=== PATIENT | female | born 1940 | race Caucasian/White ===

== ENCOUNTER 2016-09-04 16:34 | Emergency (ER) | payer MEDICARE ==
[2016-09-04 14:09] LABS: BASOPHILS 0.4 %; BASOPHILS ABSOLUTE 0.03 10/3/uL (0.0-0.16); EOSINOPHILS 0.4 %; EOSINOPHILS ABSOLUTE 0.03 10/3/uL (0.0-0.53); ER CBC TAT 0 Hrs 07 Mins; HEMATOCRIT 38.9 % (36.0-48.0); HEMOGLOBIN 12.8 g/dL (12.0-16.0); IMMATURE GRANULOCYTES 0.2 %; IMMATURE GRANULOCYTES ABSOLUTE 0.02 10/3/uL (0.0-0.11); LYMPHOCYTES 19.8 %; MEAN CORPUS HGB CONC 32.9 g/dL (32.0-36.0); MEAN CORPUSCULAR HEMOGLOB 30.6 pg (26.0-34.0); MEAN CORPUSCULAR VOLUME 93.1 fL (80-100); MEAN PLATELET VOLUME 8.9 fL (9.2-13.0); MONOCYTES 8.4 %; MONOCYTES ABSOLUTE 0.68 10/3/uL (0.21-1.20); NEUTROPHILS 70.8 %; NEUTROPHILS ABSOLUTE 5.74 10/3/uL (2.02-8.40); PLATELET COUNT 319 10/3/uL (150-400); RBC DISTRIBUTION WIDTH 14.7 % (12.0-16.0); RED CELL COUNT 4.18 10/6/uL (4.0-5.6); WHITE BLOOD CELLS 8.1 10/3/uL (4.5-10.5)
[2016-09-04 14:10] LABS: MANUAL DIFF NO %
[2016-09-04 14:12] LABS: ALLENS TEST Pos; BE (BASE EXCESS) -2.3 MEQ/L (0 +/- 2.5); HCO3 (ACTUAL BICARBONATE) 20.9 MEQ/L (23-27); INSTRUMENT SERIAL # 8087; METHEMOGLOBIN 0.2 % (0-3); O2 CONTENT 16.3 VOL% (18-24); OPERATOR ID 32214; PCO2 (CO2 TENSION) 31 MMHG (35-45); PO2 (O2 TENSION) 65 MMHG (79-93); SAMPLE Arterial; pH 7.44 (7.37-7.43)
[2016-09-04 14:25] LABS: A/G RATIO 1.2 (0.7-1.9); ALBUMIN 3.9 G/DL (3.5-5.0); ALKALINE PHOSPHATASE 60 U/L (45-117); BUN (BLOOD UREA NITROGEN) 16 MG/DL (6-23); CHLORIDE, SERUM 104 MMOL/L (96-112); CO2 (CARBON DIOXIDE) 27 MMOL/L (24-34); CREATININE 1.06 MG/DL (0.55-1.02); GFR AFRICAN AMERICAN 58 ML/MIN (>=60); GFR NON AFRICAN AMERICAN 50 ML/MIN (>=60); GLOBULIN 3.2 G/DL (2.5-4.1); GLUCOSE, SERUM 288 MG/DL (60-99); POTASSIUM, SERUM 4.2 MMOL/L (3.5-5.3); SGOT(AST) 24 U/L (5-40); SGPT(ALT) 26 U/L (5-65); SODIUM, SERUM 139 MMOL/L (135-148); TOTAL BILIRUBIN 0.7 MG/DL (0-1.2); TOTAL PROTEIN 7.1 G/DL (6.0-8.5)
[2016-09-04 14:59] LABS: ASCORBIC ACID (UR NOT ORDER) NEG (NEG); BILIRUBIN, URINE NEGATIVE (NEG); ER URINALYSIS TAT 0 Hrs 19 Mins; KETONE, URINE TRACE MG/DL (NEG); LEUKOCYTE ESTERASE(NOT OR LARGE (NEG); NITRITE (URINE) POS (NEG); WBC (NOT ORDERED) (RFLEX) > 182 (0-5)
== END 2016-09-04 16:42 | disposition home or self-care (01) ==
LOC: ER 16:34
PROVIDERS: Emergency Medicine
DX: N39.0 Urinary tract infection, site not specified (principal); J45.909 Unspecified asthma, uncomplicated; F17.200 Nicotine dependence, unspecified, uncomplicated; Z88.5 Allergy status to narcotic agent
CPT/HCPCS: 36600; 70450; 80053; 81001; 82805; 82962; 85025; 87077; 87086; 87186; 93005; 99285

== ENCOUNTER 2016-09-06 21:19 | Inpatient (IN) | payer MEDICARE ==
--- NOTE | ~2016-09-06 | HP ---
History And Physical [place] [id number] [facility] [place]. [address] NAME: EUGENE PINTO : 36 STATUS : ADM IN PAT#: [id number] AGE: 76 ADM/REG DATE : 09/07/16 MR#: [id number] REPORT SERV DATE: 09/07/16 DICTATED BY: LEILA HUSAIN DATE: 09/07/16 REPORT STATUS : Draft TRANSCRIBED BY: MODL DATE: 09/07/16 DATE OF ADMISSION: 09/07/2016 CHIEF COMPLAINT: A 76-year-old female presenting with progressive confusion, agitation, psychosis. HISTORY OF PRESENTING ILLNESS: The patient's history was obtained through careful interview with the patient and daughter coupled with review of [facility] medical records. The patient over the last year has had gradually worsening dementia. It has not become disabling in anyway, but the patient just has waxing and waning, confusion, and loss of short-term memory, but still is able to live independently. But over the last six days, the patient's confusion has really progressed rapidly. She first began to feel paranoid and according to the family was acting "crazy," she said that she was dying and believes that she had to empty out her checking account to make sure that only the appropriate people in the family were able to get "her money." She actually presented a check for 1200 dollars to one of her sons because of this. Then a few days ago, she drove to [place] and was sitting in a dentist office, thinking it was a bank, waiting to be attended to by the banking staff there. It took quite a bit of time for the dentist office to determine who the patient was and how to contact her family. She had left her keys in the ignition out in the parking lot and eventually were able to contact family to come and get her. She was disoriented and agitated. Eventually, she found her way to our emergency department on 09/04/2016, and was diagnosed with quite a severe urinary tract infection, was started on antibiotics for this thinking that this might clear up her confusion and delirium. Despite being on antibiotics for several days, she has only become more confused. She has been agitated, combative, and today was trying to get out of the house. She has actually thought that her (who about 10 years ago) "was still alive." The patient has been constantly talking, has been continuing to have "crazy" thoughts according to the family and paranoia. She has only slept maybe two hours at a time for the last two or three nights. She talks incessantly and is very irritable. The patient has had a gradual weight loss over the last 10 years since her 's , but nothing more severe than that over these last few years. She has chronic shortness of breath related to heavy smoking and a chronic smoker's cough. No chest pain. No headache. No pain complaints at all. REVIEW OF SYSTEMS: Otherwise, a 14-point review of systems was obtained, was negative. History And Physical [address] [address] NAME: EUGENE PINTO : 38 STATUS : ADM IN PAT#: [id number] AGE: 76 ADM/REG DATE : 09/07/16 MR#: [id number] REPORT SERV DATE: 09/07/16 DICTATED BY: LEILA HUSAIN DATE: 09/07/16 REPORT STATUS : Draft TRANSCRIBED BY: DANIELLE DATE: 09/07/16 PAST MEDICAL HISTORY: 1. Dementia. 2. COPD. 3. 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 PAST SURGICAL HISTORY: 1. Partial gastrectomy. 2. Bilateral wrist surgery. 3. Hysterectomy. ALLERGIES: CODEINE. SOCIAL HISTORY: The patient is a "chain smoker" at least two packs per day. No alcohol abuse. She lives alone. Has been a for more than 10 years. Lives in [place], [place]. Has a total of three children, but has completely "cut off" one of her sons and has had only intermittent communication with the daughter. FAMILY HISTORY: Sister with cancer. Father with tuberculosis. A strong family history of arthritis. CURRENT MEDICATIONS: Include Macrobid 100 mg p.o. b.i.d., AZO-Standard for urinary symptoms. PHYSICAL EXAMINATION: VITAL SIGNS: Temperature 98.2, pulse 95, blood pressure 110/62, respiratory rate 18, and O2 sat 92% on room air. GENERAL: A very agitated, animated, combative, confused, delirious and even psychotic female, who seems distressed by her confusion and agitation. HEENT: Pupils equal, round, and reactive to light. No conjunctival pallor. No scleral icterus. Nares are patent. Oropharynx is clear of obstruction. Very dry mucous membranes. NECK: Trachea midline. No thyromegaly. LYMPH: No cervical lymphadenopathy. No supraclavicular lymphadenopathy. RESPIRATORY: The patient has scattered wheezes on examination. No rhonchi. No rales. A nonlabored respiratory effort though. CARDIOVASCULAR: Regular rate and rhythm. No murmurs, rubs, or gallops. No extremity edema is appreciated. ABDOMEN: Flat, nontender, non nondistended. No hepatosplenomegaly. DERMATOLOGICAL: Warm and dry extremities. No pallor. No cyanosis. There does seem to be tenting of the skin to suggest underlying dehydration. PSYCHIATRIC: As mentioned the patient has been combative, uncooperative, delirious, disoriented x3, paranoid. LABORATORY DATA: White blood count 9.3, hemoglobin 12, hematocrit 37, platelets 303, sodium 140, potassium 4.1, chloride 106, bicarb 25, BUN 21, creatinine 1.16, glucose 129. Urinalysis seems to show resolution of the patient's underlying urinary tract infection although there still are positive nitrites and 9 hyaline casts, lipase 111, lactic acid 1.2. History And Physical [address] [address] NAME: EUGENE PINTO : 36 STATUS : ADM IN [facility]#: [id number] AGE: 76 ADM/REG DATE : 09/07/16 MR#: [id number] REPORT SERV DATE: 09/07/16 DICTATED BY: LEILA HUSAIN DATE: 09/07/16 REPORT STATUS : Draft TRANSCRIBED BY: MODL DATE: 09/07/16 INR 1.1. Liver enzymes within normal limits. ABG demonstrates pH 7.44, a PaCO2 of 31, a PaO2 of 65, bicarb 21. STUDIES: 1. EKG by my own evaluation shows sinus rhythm, left atrial abnormality. 2. CT scan of the chest shows a possible right upper lung pleural-based mass, but it seems to be calcified and may be more chronic in nature? 3. CT scan of the brain without contrast shows apparent right frontal abnormalities, which may also be chronic in nature with calcification? ASSESSMENT AND PLAN: 1. Encephalopathy with acute psychosis "failed" outpatient management. We had to give IM Geodon just for protection of the patient and the staff because of extreme agitation and increasing combativeness. We will use p.r.n. Geodon and/or Seroquel as needed. Obtain a psychiatric consult with Dr. Rodriguez and a neurology consult. 2. Recovering urinary tract infection. Responding well seems to outpatient antibiotics, but we will place on IV Rocephin for the next two days. 3. Dehydration place on IV fluids and monitor. 4. Brain lesions. They may be benign and chronic by CT scan, but would like to consult Neurology. 5. Lung mass/pleural disease. Obtain a Pulmonary consult. 6. Chronic obstructive pulmonary disease, place on Duo nebulizer. The patient is a "chain smoker.". KPL/MODL Leila Husain M.D. / [id number] CC: Alan Monk M.D.
--- NOTE | ~2016-09-06 | CN ---
Consultation Report [facility] [address] [place]. [address] NAME: EUGENE PINTO : 36 STATUS : ADM IN PAT#: [id number] AGE: 76 ADM/REG DATE : 09/07/16 MR#: [id number] REPORT SERV DATE: 09/07/16 DICTATED BY: KIT RUBIN DATE: 09/07/16 REPORT STATUS : Draft TRANSCRIBED BY: MODDominik DATE: 09/07/16 PSYCHIATRIC CONSULTATION DATE OF CONSULTATION: 09/07/2016 I discussed the patient's status with her nurse. I discussed the patient's history and status with the hospitalist, Dr. Gonzalez. HISTORY OF PRESENT ILLNESS: She was admitted with a four- to five-day history of having an abrupt change in her mental status. She became agitated and very labile. She was preoccupied by multiple delusions, all of which were poorly organized, transitory and all had a persecutory quality. She was concerned that certain family members would not be able to access her money when she . She apparently thought her , who had about 10 years ago, was alive or was about to come back to get her. She slept little or none in recent nights. She constantly spoke with a pressured speech. PAST PSYCHIATRIC HISTORY: Over the years, she has been a difficult member of the family. She would suddenly become suspicious of one or other of her children. She would get angry, hold grudges, and refuse to talk to them for many years. She had no prior manic episodes. She had no prior major depressive episodes. Over the past year or so, family members thought she might be getting forgetful. However, she remained independent and she had no problems driving her car. SOCIAL HISTORY: She has been for about 10 years. She has three children. She is a chain smoker. FAMILY HISTORY: No psychiatric illness. MENTAL STATUS: She was sitting on the side of the bed. She had constant and pressured speech. She had flight of ideas. She expressed many disconnected and delusional thoughts. Her affect was very labile with angry and combative outbursts. She was unable to focus sufficiently to answer any orientation questions. DIAGNOSIS: Acute manic episode. RECOMMENDATIONS: She should be transferred to an inpatient psychiatric facility as soon as possible. I will increase her Seroquel to 100 mg p.o. q.2 hours p.r.n. I will follow during this hospitalization. I will complete a certificate of need. DK/MODL Kit Rubin M.D. Consultation Report [address] [address] NAME: EUGENE PINTO : 36 STATUS : ADM IN PAT#: [id number] AGE: 76 ADM/REG DATE : 09/07/16 MR#: [id number] REPORT SERV DATE: 09/07/16 DICTATED BY: KIT RUBIN DATE: 09/07/16 REPORT STATUS : Draft TRANSCRIBED BY: DANIELLE DATE: 09/07/16 / [id number] CC: Alan Monk M.D.
--- NOTE | ~2016-09-06 | DS ---
Discharge Summary [address] [address] [place]. [address] NAME: EUGENE PINTO : 36 STATUS : DIS IN PAT#: [id number] AGE: 76 ADM/REG DATE : 09/07/16 MR#: [id number] REPORT SERV DATE: 09/12/16 DICTATED BY: PRESLEY MURRY DATE: 09/11/16 REPORT STATUS : Draft TRANSCRIBED BY: MODL DATE: 09/11/16 ADMISSION DATE: 09/07/2016 DISCHARGE DATE: 09/11/2016 REASON FOR ADMISSION: This is a 76-year-old female presenting with progressive confusion, agitation, and psychosis. DISCHARGE DIAGNOSES: 1. Psychosis with collins. 2. Urinary tract infection. HOSPITAL COURSE: 1. Psychosis with collins. On admission, the patient had urinalysis which show nitrite positive with few bacteria. Because of that, she was started on IV antibiotics and IV Rocephin for UTI. Her serum white blood cell count was never elevated, it was normal at 8.1. Her urine culture would grow out E. coli greater than 100,000. She was transitioned from IV Rocephin over to Ceftin and she is on day #5 of antibiotic, needs two more days to complete. Because the patient was not overly septic and she did have a history of dementia and chronic personality disorder, Dr. Rodriguez was consulted from Psychiatry and his assessment was acute manic episodes and recommended a transfer to inpatient [facility] Facility and increased her Seroquel. DISCHARGE CONDITION: Stable. DISCHARGE MEDICATIONS: 1. Cefuroxime 500 mg p.o. b.i.d. 2. Depakote 500 mg p.o. at bedtime. 3. Seroquel 100 mg p.o. t.i.d. DISCHARGE PLAN: The patient is discharged to Geriatric Psych for medication adjustment and behavior therapy. After behavior stabilization occurs, she will hopefully be transferred back home. LISA/DANIELLE Presley Murry APN / [id number] CC: Alan Monk M.D.
[2016-09-06 20:46] LABS: BASOPHILS 0.3 %; BASOPHILS ABSOLUTE 0.03 10/3/uL (0.0-0.16); EOSINOPHILS 0.5 %; EOSINOPHILS ABSOLUTE 0.05 10/3/uL (0.0-0.53); ER CBC TAT 0 Hrs 07 Mins; HEMATOCRIT 37.2 % (36.0-48.0); HEMOGLOBIN 12.4 g/dL (12.0-16.0); IMMATURE GRANULOCYTES 0.2 %; IMMATURE GRANULOCYTES ABSOLUTE 0.02 10/3/uL (0.0-0.11); LYMPHOCYTES 20.5 %; LYMPHOCYTES ABSOLUTE 1.91 10/3/uL (0.67-4.30); MEAN CORPUS HGB CONC 33.3 g/dL (32.0-36.0); MEAN CORPUSCULAR HEMOGLOB 30.8 pg (26.0-34.0); MEAN CORPUSCULAR VOLUME 92.3 fL (80-100); MONOCYTES 10.4 %; MONOCYTES ABSOLUTE 0.97 10/3/uL (0.21-1.20); NEUTROPHILS 68.1 %; NEUTROPHILS ABSOLUTE 6.35 10/3/uL (2.02-8.40); PLATELET COUNT 303 10/3/uL (150-400); RBC DISTRIBUTION WIDTH 14.3 % (12.0-16.0); RED CELL COUNT 4.03 10/6/uL (4.0-5.6); WHITE BLOOD CELLS 9.3 10/3/uL (4.5-10.5)
[2016-09-06 20:47] LABS: MANUAL DIFF NO %
[2016-09-06 20:53] LABS: INTERNATIONAL NORMAL RATI 1.1 UNITS (-); PARTIAL THROMBO TIME 28.5 SEC (22.5-37.2); PROTIME (NOT ORD) 13.6 SEC (12.0-14.5)
[2016-09-06 21:04] LABS: A/G RATIO 1.3 (0.7-1.9); ALKALINE PHOSPHATASE 64 U/L (45-117); CALCIUM, SERUM 9.7 MG/DL (8.5-10.4); CHLORIDE, SERUM 106 MMOL/L (96-112); CO2 (CARBON DIOXIDE) 25 MMOL/L (24-34); CREATININE 1.16 MG/DL (0.55-1.02); GFR AFRICAN AMERICAN 52 ML/MIN (>=60); GFR NON AFRICAN AMERICAN 45 ML/MIN (>=60); GLOBULIN 3.1 G/DL (2.5-4.1); POTASSIUM, SERUM 4.1 MMOL/L (3.5-5.3); SGOT(AST) 30 U/L (5-40); SGPT(ALT) 21 U/L (5-65); SODIUM, SERUM 140 MMOL/L (135-148); TOTAL BILIRUBIN 0.9 MG/DL (0-1.2); TOTAL PROTEIN 7.1 G/DL (6.0-8.5)
[2016-09-06 21:05] LABS: LACTATE 1.2 MMOL/L (0.3-2.4)
[2016-09-06 21:05] LABS: BUN (BLOOD UREA NITROGEN) 21 MG/DL (6-23); GLUCOSE, SERUM 129 MG/DL (60-99)
[2016-09-06 23:21] LABS: ASCORBIC ACID (UR NOT ORDER) NEG (NEG); BILIRUBIN, URINE NEGATIVE (NEG); ER URINALYSIS TAT 0 Hrs 00 Mins; KETONE, URINE NEGATIVE (NEG); LEUKOCYTE ESTERASE(NOT OR NEG (NEG); NITRITE (URINE) POS (NEG); WBC (NOT ORDERED) (RFLEX) 5 (0-5)
[2016-09-06] MEDS ORDERED: MACROBID PO (23:48)
[2016-09-06] MEDS ORDERED: AZO-STANDARD95 MG PO (23:49)
[2016-09-07 06:24] LABS: BASOPHILS 0.4 %; BASOPHILS ABSOLUTE 0.03 10/3/uL (0.0-0.16); EOSINOPHILS 1.2 %; EOSINOPHILS ABSOLUTE 0.09 10/3/uL (0.0-0.53); HEMATOCRIT 35.9 % (36.0-48.0); HEMOGLOBIN 11.9 g/dL (12.0-16.0); IMMATURE GRANULOCYTES 0.3 %; IMMATURE GRANULOCYTES ABSOLUTE 0.02 10/3/uL (0.0-0.11); LYMPHOCYTES ABSOLUTE 1.61 10/3/uL (0.67-4.30); MANUAL DIFF NO %; MEAN CORPUS HGB CONC 33.1 g/dL (32.0-36.0); MEAN CORPUSCULAR HEMOGLOB 30.5 pg (26.0-34.0); MEAN CORPUSCULAR VOLUME 92.1 fL (80-100); MEAN PLATELET VOLUME 9.1 fL (9.2-13.0); MONOCYTES ABSOLUTE 0.73 10/3/uL (0.21-1.20); NEUTROPHILS 66.1 %; NEUTROPHILS ABSOLUTE 4.85 10/3/uL (2.02-8.40); PLATELET COUNT 279 10/3/uL (150-400); RBC DISTRIBUTION WIDTH 14.2 % (12.0-16.0); WHITE BLOOD CELLS 7.3 10/3/uL (4.5-10.5)
[2016-09-07 06:28] LABS: INTERNATIONAL NORMAL RATI 1.1 UNITS (-); PARTIAL THROMBO TIME 26.1 SEC (22.5-37.2); PROTIME (NOT ORD) 13.7 SEC (12.0-14.5)
[2016-09-07 06:43] LABS: A/G RATIO 1.2 (0.7-1.9); ALBUMIN 3.5 G/DL (3.5-5.0); ALKALINE PHOSPHATASE 61 U/L (45-117); BUN (BLOOD UREA NITROGEN) 20 MG/DL (6-23); CHLORIDE, SERUM 109 MMOL/L (96-112); CO2 (CARBON DIOXIDE) 24 MMOL/L (24-34); CREATININE 0.91 MG/DL (0.55-1.02); GFR AFRICAN AMERICAN 70 ML/MIN (>=60); GFR NON AFRICAN AMERICAN 60 ML/MIN (>=60); GLUCOSE, SERUM 91 MG/DL (60-99); PHOSPHORUS, SERUM 3.2 MG/DL (2.5-4.5); POTASSIUM, SERUM 3.6 MMOL/L (3.5-5.3); SGOT(AST) 27 U/L (5-40); SGPT(ALT) 20 U/L (5-65); SODIUM, SERUM 143 MMOL/L (135-148); TOTAL BILIRUBIN 0.6 MG/DL (0-1.2); TOTAL PROTEIN 6.5 G/DL (6.0-8.5); TROPONIN I <0.02 NG/ML (<0.05)
[2016-09-07 07:11] LABS: PROCALCITONIN <0.05 ng/mL (<0.5)
== END 2016-09-11 13:02 | DRG 885 ==
LOC: ER 21:19 → 1SO 09-07 00:02
PROVIDERS: Hospitalist; Internal Medicine
DX: F30.2 Manic episode, severe with psychotic symptoms (principal); G93.40 Encephalopathy, unspecified; N17.9 Acute kidney failure, unspecified; N39.0 Urinary tract infection, site not specified; F03.91 Unspecified dementia, unspecified severity, with behavioral disturbance; F05 Delirium due to known physiological condition; R62.7 Adult failure to thrive; B96.20 Unspecified Escherichia coli [E. coli] as the cause of diseases classified elsewhere; J44.9 Chronic obstructive pulmonary disease, unspecified; E86.0 Dehydration; R91.8 Other nonspecific abnormal finding of lung field; F17.210 Nicotine dependence, cigarettes, uncomplicated; Z79.899 Other long term (current) drug therapy; Z90.3 Acquired absence of stomach [part of]; Z88.5 Allergy status to narcotic agent
CPT/HCPCS: 36600; 70450; 71010; 71250; 80053; 81001; 82805; 82962; 83605; 83690; 83735; 83880; 84100; 84145; 84443; 84484; 85025; 85610; 85730; 87040; 87077; 87086; 87186; 93005; 96372; 99285; A9270-GY; J3486